=== PATIENT | female | born 1950 | race Caucasian/White ===

== ENCOUNTER → 2016-11-06 | Day surgery (SDC) | payer OTHER ==
[~2016-11-06] MED LIST: ASPIRIN PO; ASPIRIN81 MG PO; AZITHROMYCIN250 MG PO; CERTAGEN PO; COMBIVENT U/D3 ML INH; CVS TENSION HE1 EACH PO; INDOMETHACIN25 MG PO; LEVAQUIN PO; NAPROXEN PO; NIACIN ER500 MG; OMEGA 3 FISH OI1 CAP PO; PREDNISONE PO; RELIE EAC PO; SYMBICORT 160/4.6 GM IH
--- NOTE | ~2016-11-06 | OR ---
Unit #: [id number] #: [id number] Patient: MANUEL BREWER [id number] [address] [place], [place] [address] [id number] O MR#: [id number] NAME: MANUEL BREWER ROOM: Date of Procedure: 11/06/2016 Admission Date: 11/06/2016 Surgeon: Ellis Askew M.D. : 1950 Attending Physician: Ellis Askew M.D. Primary Care Physician: Aneta Fan M.D. OPERATIVE REPORT PREOPERATIVE DIAGNOSES The patient has presented for colorectal cancer surveillance. She has personal history of colonic polyps removed in the past. PROCEDURES PERFORMED Colonoscopy and polypectomy. POSTOPERATIVE DIAGNOSES 1. The patient had 2 sessile polyps in the cecum. Both were removed using snare polypectomy. 2. Rest of the examination up to cecum was normal. The quality of the prep was good. RECOMMENDATIONS Follow up results of polyp histology and consider repeat colonoscopy in 5 years. SEDATION USED MAC. DESCRIPTION OF PROCEDURE Following detailed explanation of potential risks and complications of a colonoscopy, namely perforation, bleeding, and complications related to sedation, the patient was brought to GI lab and laid in left lateral decubitus position. A digital rectal examination was performed, which was normal. Lubricated tip of the Olympus video colonoscope was inserted through the anus and advanced under direct vision. The scope was advanced and passed up to sigmoid into descending colon. No diverticula were seen in this area. The scope tip was then navigated all the way up to cecum with visualization of the ileocecal valve and appendiceal orifice. Preparation was excellent with good visualization and photodocumentation was obtained. Last several inches of terminal ileum also visualized after intubation of the ileocecal valve and appeared normal. Successive segments of the colonic mucosa were examined upon withdrawal and the patient was noted 2 sessile polyps in the cecum adjacent to appendiceal orifice. Both were removed using snare polypectomy. They were retrieved and sent for histology. No additional polyps were noted. The patient did not have any diverticulosis nor any hemorrhoids. The scope was then withdrawn. The patient returned to recovery area. The patient tolerated the procedure without any postprocedure complications. Unit #: [id number] #: [id number] Patient: MANUEL BREWER Dictated by... Janet Santiago/kelvin TD: 11/06/2016 17:59 JOB #: [id number] OPERATIVE REPORT Page 1 of 1 X Ellis Askew MD X PROCEDURE OPERATIVE NOTE
== END | disposition home or self-care (01) ==
LOC: COPS 07-12 08:30
DX: Z12.11 Encounter for screening for malignant neoplasm of colon (principal); D12.0 Benign neoplasm of cecum; K52.9 Noninfective gastroenteritis and colitis, unspecified; J44.9 Chronic obstructive pulmonary disease, unspecified; K21.9 Gastro-esophageal reflux disease without esophagitis; F17.210 Nicotine dependence, cigarettes, uncomplicated; Z85.3 Personal history of malignant neoplasm of breast; Z86.010 Personal history of colon polyps; Z88.8 Allergy status to other drugs, medicaments and biological substances; Z79.82 Long term (current) use of aspirin; Z79.899 Other long term (current) drug therapy; Z90.711 Acquired absence of uterus with remaining cervical stump; Z90.12 Acquired absence of left breast and nipple; Z98.818 Other dental procedure status; Z98.890 Other specified postprocedural states
CPT/HCPCS: 88305